=== PATIENT | female | born 1945 | race Caucasian/White ===

== ENCOUNTER 2021-11-09 23:29 | Inpatient (IN) | payer OTHER ==
[~2021-11-09] VITALS: Ht 157.5 cm; Wt 52.2 kg
[2021-11-10] MEDS ORDERED: BLOOD SUGAR DIAGNOSTIC 1 EACH STRIP IN ONE (01:00)
[2021-11-10] MEDS ORDERED: MAGNESIUM HYDROXIDE 30 ML UDC PO PRN (01:00)
[2021-11-10] MEDS ORDERED: ACETAMINOPHEN 325 MG TABLET PO PRN (01:00)
[2021-11-10] MEDS ORDERED: MAG HYDROX/AL HYDROX/SIMETH 30 ML UDC PO PRN (01:00)
[2021-11-10 01:04] VITALS: BP 195/107
--- NOTE | 2021-11-10 01:09 | NUR ---
GPS LETTERSET PRESS SET UP OPERATOR NOTES: RECEIVED PATIENT FROM [facility]. PATIENT ARRIVED ON THIS UNIT AT 2345 ON 11/09/21 VIA GURNEY WITH 2 EMT ESCORTS. PATIENT ADMITTED ON A 5150 HOLD FOR DTS. PER HOLD PATIENT MADE SUICIDAL STATEMENTS THE DAY SHE OVERDOSED. PT ALSO STATES HAVING LESS ENERGY AND FEELING "DOWN" DUE TO ALL THE RESTRICTIONS ASSOCIATED WITH COVID, WHICH HAS CAUSED PT TO DRINK A LOT MORE, CAUSING TO EXPERIENCE AN INCREASE IN SUICIDAL THOUGHTS. THE 5150 WAS REVIEWED AND THE DOCUMENTATION IN THE 5150 HOLD APPEARS TO REFLECT CURRENT REPRESENTATION OF THE PATIENT. UPON FACE TO FACE ASSESSMENT PATIENT IS NOTED TO HAVE FLAT AFFECT, WITHDRAWN, AND SOFT SPOKEN. PATIENT IS CURRENTLY LYING IN BED AWAKE, BREATHING IS UNLABORED WITH EQUAL RISE AND FALL OF THE CHEST. PATIENT IS ALERT AND ORIENTATED X3 ON ROOM AIR. PATIENT IS ASSISTED WITH TURNING AND REPOSITIONING Q2HRS AND PRN FOR COMFORT AND CIRCULATION. PATIENT HAS NO NEEDS AT THIS TIME. PT DENIES SI/HI/AVH AT THIS TIME. PATIENT ADVISED OF HER HOLD. PT IS CHECKED FOR CONTRABAND. ALL CONTRABAND REMOVED AND STORED IN PATIENT HALLWAY LOCKER. PATIENT ADVANCE DIRECTIVES PREFERENCE, IMMUNIZATIONS QUESTIONAER, NECESSARY PAPERWORK COMPLETED. PATIENT SKIN ASSESSMENT COMPLETED. PATIENT ORIENTED TO ROOM, FLOOR, AND STAFF WITH ALL QUESTIONS ANSWERED. PATIENT BED SIDE RAILS ARE UP X2 FOR SAFETY. PATIENT BED IS LOCKED, LOW AND WILL CONTINUE TO MONITOR PT Q15MIN WITH THE HELP OF STAFF TO MAINTAIN SAFETY AND DOCUMENT ANY CHANGES IN CURRENT CONDITION.
[2021-11-10] MEDS ORDERED: CYAN-51 PO (01:15)
[2021-11-10] MEDS ORDERED: ATEN25TA PO (01:15)
[2021-11-10] MEDS ORDERED: LISI20TA30 PO (01:15)
[2021-11-10] MEDS ORDERED: THIA100V2 PO (01:15)
[2021-11-10] MEDS ORDERED: OMEP20CA15 PO (01:15)
[2021-11-10] MEDS ORDERED: ZOLP5TAB8 PO (01:15)
[2021-11-10] MEDS ORDERED: BUSP5TAB3 PO (01:15)
[2021-11-10] MEDS ORDERED: MIRT-121 PO (01:15)
[2021-11-10] MEDS ORDERED: ATOR20TA PO (01:15)
[2021-11-10 01:30] VITALS: BP 162/94
[2021-11-10] MEDS: LORAZEPAM 0.5 MG TABLET PO PRN ×2 (03:39→22:45)
--- NOTE | 2021-11-10 03:41 | NUR ---
GPS RN NOTES: PT IS C/O FEELING ANXIOUS, RESTLESS, UNABLE TO FALL ASLEEP, REQUESTING ATIVAN. PT IS GIVEN ATIVAN 0.5MG PER DOCTOR'S ORDERS. WILL RE-EVALUATE THE EFFECTIVENESS OF MEDICATION GIVEN. WILL CONTINUE TO MONITOR PT FOR SAFETY AND CHANGES IN CURRENT CONDITION THROUGHOUT MY SHIFT.
--- NOTE | 2021-11-10 07:23 | NUR ---
GPS RN NOTE: NOTIFIED FAMILY CALLED PATIENT'S Jeffrey TAM AT [phone] AND NOTIFIED ABOUT PATIENT'S ADMISSION AT GPS UNIT.
--- NOTE | 2021-11-10 07:24 | NUR ---
GPS RN NOTE TIE CARRIER MELODY VISITED THE PATIENT AT THIS TIME AND IS AWARE ABOUT PATIENT'S ADMISSION AT GPS UNIT.
[2021-11-10 08:00] VITALS: BP 158/89
[2021-11-10] MEDS: CYANOCOBALAMIN 500 MCG TABLET PO SCH (08:10)
[2021-11-10] MEDS: MULTIVITAMINS,THERAGRAN 1 UDTAB TABLET PO SCH (08:11)
[2021-11-10] MEDS: LISINOPRIL (20MG) 20 MG TABLET PO SCH (08:11)
[2021-11-10] MEDS: PANTOPRAZOLE 40 MG TABLET.DR PO SCH (08:11)
[2021-11-10] MEDS: ATENOLOL 25 MG TABLET PO SCH (08:29)
[2021-11-10] MEDS ORDERED: hydrALAZINE HCL 10 MG TABLET PO PRN (08:30)
[2021-11-10] MEDS ORDERED: ATENOLOL 25 MG TABLET PO SCH (09:00)
[2021-11-10 16:00] VITALS: BP 159/85
[2021-11-10 20:22] VITALS: BP 159/92
[2021-11-10] MEDS ORDERED: ZOLPIDEM TARTRATE 5 MG TABLET PO SCH (22:00)
[2021-11-10] MEDS: MIRTAZAPINE 15 MG TABLET PO SCH (22:02)
[2021-11-10] MEDS: ATORVASTATIN 10 MG TABLET PO SCH (22:02)
--- NOTE | 2021-11-10 22:47 | NUR ---
GPS RN NOTES: Patient c/o anxiety. Ativan 0.5mg 1 tab given PO at 2245. will continue to monitor.
[2021-11-11 07:45] LABS: BASOPHILS % (AUTO) 0.9 % (0.0-2.0); EOSINOPHILS % (AUTO) 3.1 % (0.0-6.0); HEMATOCRIT 35 % (33-45); HEMOGLOBIN 11.7 g/dL (11.5-14.8); LYMPHOCYTES # (AUTO) 1.2 K/uL (0.8-4.8); LYMPHOCYTES % (AUTO) 30.4 % (20.0-44.0); MEAN CORPUSCULAR HGB CONC 34 g/dl (31.0-36.0); MEAN CORPUSCULAR VOLUME 93 fL (82-100); MONOCYTES # (AUTO) 0.4 K/uL (0.1-1.30); MONOCYTES % (AUTO) 10.4 % (2.0-12.0); NEUTROPHILS # (AUTO) 2.1 K/uL (1.8-8.9); NEUTROPHILS % (AUTO) 55.2 % (43.0-81.0); PLATELET COUNT (AUTO) 138 K/uL (150-450); RED BLOOD CELL COUNT(AUTO) 3.74 MIL/uL (4.0-5.2); WHITE BLOOD COUNT (AUTO) 3.9 K/uL (4.3-11.0)
[2021-11-11 08:00] VITALS: BP 150/82
[2021-11-11] MEDS: LISINOPRIL (20MG) 20 MG TABLET PO SCH (08:40)
[2021-11-11] MEDS: ATENOLOL 25 MG TABLET PO SCH (08:41)
[2021-11-11] MEDS: AMLODIPINE BESYLATE 5 MG TABLET PO SCH ×2 (08:41→17:44)
[2021-11-11] MEDS: MULTIVITAMINS,THERAGRAN 1 UDTAB TABLET PO SCH (08:42)
[2021-11-11] MEDS: PANTOPRAZOLE 40 MG TABLET.DR PO SCH (08:42)
[2021-11-11] MEDS: CYANOCOBALAMIN 500 MCG TABLET PO SCH (08:42)
[2021-11-11 09:10] LABS: ALBUMIN 2.9 g/dL (3.4-5.0); BILIRUBIN,TOTAL 0.5 mg/dL (0.2-1.0); CALCIUM, SERUM 8.8 mg/dL (8.5-10.1); CREATININE 0.6 mg/dL (0.6-1.3); POTASSIUM 3.5 mmol/L (3.5-5.1); TOTAL PROTEIN, SERUM 5.5 g/dL (6.4-8.2)
--- NOTE | 2021-11-11 11:37 | NUR ---
CHETAN Initial Discharge Note: Patient currently resides at home located at [address] [place] [address]; ([phone]). Pt lives with her Daniel ([phone]). CHETAN will work with the MD and treatment team to help coordinate appropriate discharge.
--- NOTE | 2021-11-11 11:37 | NUR ---
SW Admit Source: Patient currently resides at home located at [address] [place] [address]; ([phone]). Pt lives with her Daniel ([phone]). Pt was brought to the hospital due to overdosing on Ambien and drinking wine. Pt placed on a 5150 hold for danger to self.
--- NOTE | 2021-11-11 11:45 | NUR ---
Social Work Note/Substance Abuse Intervention: Patient was provided with a brief substance abuse intervention and referred to [facility] ([phone]), [facility] ([phone]), and [facility] ([phone]) for drinking wine.
--- NOTE | 2021-11-11 13:17 | NUR ---
CHETAN Family Contact: CHETAN received a call from pt's son ([phone]) and left a detailed voicemail. CHETAN contacted patient's Daniel ([phone]) and discussed treatment/discharge plan. He stated that he has been in contact with Dr. Schofield.
--- NOTE | 2021-11-11 13:37 | NUR ---
CHETAN Coordination of Care: Patient will follow up with (Dairy Manufacturing Technologist) Dr. Bowers located at [address] [place] [address]; ([phone]) on November 20 at 2:30PM who will monitor and provide psychotropic medications. Doctor office will refer pt to a psychiatrist within pts network.
--- NOTE | 2021-11-11 13:38 | NUR ---
SW Family Contact: SW spoke with patient's Ace ([phone]) and discussed treatment and discharge plan.
--- NOTE | 2021-11-11 14:50 | NUR ---
CHETAN Family Contact: CHETAN spoke with patient's Ace ([phone]) requested to speak to the doctor. CHETAN notified Dr. Whipple.
[2021-11-11 16:00] VITALS: BP 146/81
[2021-11-11 20:00] VITALS: BP 160/92
[2021-11-11] MEDS: LORAZEPAM 0.5 MG TABLET PO PRN (21:56)
[2021-11-11] MEDS: ATORVASTATIN 10 MG TABLET PO SCH (21:56)
[2021-11-11] MEDS: MIRTAZAPINE 15 MG TABLET PO SCH (21:56)
--- NOTE | 2021-11-11 21:58 | NUR ---
GPS RN NOTES: Patient c/o anxiety. Ativan 0.5mg 1 tab given PO at 2156. Will continue to monitor.
[2021-11-11] MEDS: TEMAZEPAM 7.5 MG CAPSULE PO PRN (22:42)
--- NOTE | 2021-11-11 22:43 | NUR ---
GPS RN NOTES: RESTORIL 7.5MG GIVEN PO FOR SLEEP AT 2242. WILL CONTINUE TO MONITOR.
[2021-11-12] MEDS: PANTOPRAZOLE 40 MG TABLET.DR PO SCH (07:31)
[2021-11-12 08:00] VITALS: BP 157/84
[2021-11-12] MEDS: AMLODIPINE BESYLATE 5 MG TABLET PO SCH ×2 (08:07→16:37)
[2021-11-12] MEDS: LISINOPRIL (20MG) 20 MG TABLET PO SCH (08:08)
[2021-11-12] MEDS: MULTIVITAMINS,THERAGRAN 1 UDTAB TABLET PO SCH (08:08)
[2021-11-12] MEDS: CYANOCOBALAMIN 500 MCG TABLET PO SCH (08:08)
[2021-11-12] MEDS: ATENOLOL 25 MG TABLET PO SCH (08:08)
--- NOTE | 2021-11-12 12:03 | NUR ---
UR Insurance: Patient authorized from 11/09/2021 11/14/2021. Auth was given abiel yuen auth #[id number] Called natalie @[phone] s/w Luis Smith assigned regional program manager is Dayami Howard @[phone].
[2021-11-12 16:00] VITALS: BP 155/90
[2021-11-12 20:00] VITALS: BP 157/81
[2021-11-12] MEDS: ATORVASTATIN 10 MG TABLET PO SCH (22:10)
[2021-11-12] MEDS: MIRTAZAPINE 15 MG TABLET PO SCH (22:10)
[2021-11-12] MEDS: TEMAZEPAM 7.5 MG CAPSULE PO PRN (23:11)
--- NOTE | 2021-11-12 23:12 | NUR ---
GPS RN NOTES: RESTORIL 7.5MG GIVEN PO FOR SLEEP AT 2311. WILL CONTINUE TO MONITOR.
[2021-11-13 08:00] VITALS: BP 134/78
[2021-11-13] MEDS: PANTOPRAZOLE 40 MG TABLET.DR PO SCH (08:11)
--- NOTE | 2021-11-13 08:19 | NUR ---
CHETAN Coordination of Care: CHETAN faxed pt's clinicals to (Condenser Tester) Dr. Bowers located at [address] [place], [place] [address]; ([phone]) ([phone]).
[2021-11-13] MEDS: LISINOPRIL (20MG) 20 MG TABLET PO SCH (08:27)
[2021-11-13] MEDS: MULTIVITAMINS,THERAGRAN 1 UDTAB TABLET PO SCH (08:28)
[2021-11-13] MEDS: ATENOLOL 25 MG TABLET PO SCH (08:30)
[2021-11-13] MEDS: AMLODIPINE BESYLATE 5 MG TABLET PO SCH ×2 (08:31→16:18)
[2021-11-13] MEDS: CYANOCOBALAMIN 500 MCG TABLET PO SCH (08:31)
[2021-11-13 16:00] VITALS: BP 146/93
[2021-11-13 20:00] VITALS: BP 128/73
[2021-11-13] MEDS: TEMAZEPAM 7.5 MG CAPSULE PO PRN (21:03)
[2021-11-13] MEDS: ATORVASTATIN 10 MG TABLET PO SCH (21:03)
[2021-11-13] MEDS: MIRTAZAPINE 15 MG TABLET PO SCH (21:03)
[2021-11-13] MEDS ORDERED: busPIRone 5 MG TABLET PO SCH (22:00)
[2021-11-14 08:00] VITALS: BP 144/80
[2021-11-14] MEDS: PANTOPRAZOLE 40 MG TABLET.DR PO SCH (08:09)
--- NOTE | 2021-11-14 08:12 | NUR ---
SW Discharge Note: Patient will discharge back home located at [address] [place] [address]; ([phone]). Patients Daniel ([phone]) will orange picker pt at 1PM. Patients son Ace ([phone]) is also aware of dc. Patient is happy to be going back home. Patient is alert and oriented x3. Patient denies suicidal or homicidal ideation. Patient denies visual/auditory hallucinations. Patient will follow up with (Pants Presser Automatic) Dr. Bowers located at [address] [facility] [place] [address]; ([phone]) on November 20 at 2:30PM who will monitor and provide psychotropic medications. Doctor office will refer pt to a psychiatrist within pts network. Patient was referred to [facility] ([phone]), [facility] ([phone]), and [facility] ([phone]) for drinking wine. Patient presents with euthymic mood and congruent affect.
[2021-11-14] MEDS: MULTIVITAMINS,THERAGRAN 1 UDTAB TABLET PO SCH (08:26)
[2021-11-14] MEDS: CYANOCOBALAMIN 500 MCG TABLET PO SCH (08:26)
[2021-11-14] MEDS: LISINOPRIL (20MG) 20 MG TABLET PO SCH (08:26)
[2021-11-14] MEDS: AMLODIPINE BESYLATE 5 MG TABLET PO SCH (08:27)
[2021-11-14 08:28] VITALS: BP 144/80
[2021-11-14] MEDS: ATENOLOL 25 MG TABLET PO SCH (08:28)
--- NOTE | 2021-11-14 09:00 | NUR ---
UR Insurance: Patient authorized from 11/09/2021 11/14/2021. #[id number]. CHETAN received a call from Nereyda catalytic case operator ([phone]) and stated to provided clinical information and if pt is being discharged or not. CHETAN contacted Nereyda back and left a detailed voicemail of pt's discharge of 11/14/21.
--- NOTE | 2021-11-14 09:56 | NUR ---
RN-CO: DISCHARGE NOTE: PATIENT IS AWARE OF HER DISCHARGE TODAY. SHE DENIES SI/HI,VH,AH. HER AFFECT IS BRIGHT AND SHE IS EXCITED TO GO HOME. SHE SIGNED ALL DISCHARGE PAPERS AND VERBALIZED UNDERSTANDING. DR HDEZ SEEN AND EXAMINED HER AND ORDER TO DISCHARGE HER TODAY. 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 HER PRESCRIPTIONS WILL BE GIVEN TO HER AND HER PERSONAL BELONGINGS. DR Hdez ALSO ORDERED TO DISCONTINUE HOLD. PATIENT DENIES PAIN AND DISCOMFORTS AND MEDICALLY CLEARED HER FOR DISCHARGE BY QUENTIN MEYERS.
--- NOTE | 2021-11-14 12:41 | NUR ---
RN-CO: PATIENT WAS ESCORTED BY STAFF IN THE LOBBY TO MEET HER . BELONGINGS AND VALUABLES WAS GIVEN BACK, HER PRESCRIPTION WAS DISCUSSED AND SHE VERBALIZED UNDERSTANDING.
== END 2021-11-14 12:45 | disposition home or self-care (01) | DRG 881 ==
LOC: GPS 23:29
PROVIDERS: ADMIT Nurse Practitioner Psychiatric/Mental Health
DX: F32.9 Major depressive disorder, single episode, unspecified (principal); E78.5 Hyperlipidemia, unspecified; F41.9 Anxiety disorder, unspecified; I10 Essential (primary) hypertension; Z79.899 Other long term (current) drug therapy; Z91.51 Personal history of suicidal behavior; G47.00 Insomnia, unspecified; T42.6X1D Poisoning by other antiepileptic and sedative-hypnotic drugs, accidental (unintentional), subsequent encounter; T51.0X1D Toxic effect of ethanol, accidental (unintentional), subsequent encounter
CPT/HCPCS: 36415; 80053-TC; 80061-TC; 82962-TC; 85025-TC; 87081-TC